=== PATIENT | male | born 1950 | race Caucasian/White ===

== ENCOUNTER 2022-09-06 18:06 | Inpatient (IN) | payer OTHER ==
[~2022-09-06] VITALS: Ht 182.9 cm; Wt 81.6 kg
[~2022-09-06 18:06] MED LIST: ALBU0.0939 IH; CARV25TA2 PO; CITA-70 PO; FURO-570 PO; GABA-560 PO; INSU100S45 SC; LANTUS SC; LISI10TA31 PO; OMEP20EC9 PO; TRAZ-471 PO; WARF2TAB PO; ZOLP-159 PO; [UNRECOGNIZED DRUG - CODE] PO; [UNRECOGNIZED DRUG - CODE] PO
--- NOTE | 2022-09-06 18:06 | NUR ---
RUPAL ALS TO ER BED 4
--- NOTE | 2022-09-06 18:08 | NUR ---
Patient being evaluated by physician at bedside.
[2022-09-06 18:12] VITALS: BP 148/72; PULSE 96; RESP 20; TEMP 98.9; O2SAT 98
--- NOTE | 2022-09-06 18:16 | NUR ---
72 Y/O MALE BIBA FROM HOME, C/O CHEST PAIN WITH REST, UNPROVOKED FOR 1 WEEK. PT STATES HE WAS SEEN AT [place] LAST WEEK FOR SAME PAIN AND RELEASED SAME DAY. PT STATES HE TOOK 3 TABS OF NITRO AT HOME BUT STATES THEY WERE . PT WAS GIVEN 1.2MG NITRO BY [facility] WITH 4MG OF ZOFRAN. PT STATES HE STILL HAS 6/10 PAIN RADIATING FROM CHEST TO LEFT ARM AND TINGLING IN HANDS AND FEET. A&OX4, DOES NOT AMBULATE AT THIS TIME DUE TO PAIN. HEART RATE SINUS, PACED 72. CALL LIGHT WITHIN REACH. PMH: PACEMAKER, CHF, COPD NKA
[2022-09-06] MEDS ORDERED: NITROGLYCERIN 2% 1 GM PKT TP ONE (18:20)
[2022-09-06] MEDS ORDERED: MORPHINE SULFATE 4 MG/ML SYR IVP ONE ×2 (18:20→22:20)
--- NOTE | 2022-09-06 18:20 | NUR ---
72 Y/O MALE BIBA FROM HOME, C/O CHEST PAIN WITH REST, UNPROVOKED FOR 1 WEEK. PT STATES HE WAS SEEN AT [place] LAST WEEK FOR SAME PAIN AND RELEASED SAME DAY. PT STATES HE TOOK 3 TABS OF NITRO AT HOME BUT STATES THEY WERE . PT WAS GIVEN 1.2MG NITRO BY [facility] WITH 4MG OF ZOFRAN. PT STATES HE STILL HAS 6/10 PAIN RADIATING FROM CHEST TO LEFT ARM AND TINGLING IN HANDS AND FEET. A&OX4, DOES NOT AMBULATE AT THIS TIME DUE TO PAIN. HEART RATE SINUS, PACED 72. CALL LIGHT WITHIN REACH. PMH: PACEMAKER, CHF, COPD NKA
[2022-09-06 18:25] VITALS: O2SAT 98
[2022-09-06 18:38] LABS: BASOPHILS # (AUTO) 0.1 K/uL (0.00-0.22); EOSINOPHILS # (AUTO) 0.2 K/uL (0-0.4); EOSINOPHILS % (AUTO) 3.1 % (0.0-4.0); LYMPHOCYTES # (AUTO) 1.7 K/uL (2.0-11.5); LYMPHOCYTES % (AUTO) 22.3 % (20.5-51.1); MEAN CORPUSCULAR HEMOGLOBIN 26 pg (27-31); MEAN CORPUSCULAR HGB CONC 33 g/dL (33-37); MEAN CORPUSCULAR VOLUME 80.2 fL (80-94); MONOCYTES # (AUTO) 0.9 K/uL (0.8-1.0); MONOCYTES % (AUTO) 11.8 % (1.7-9.3); NEUTROPHILS # (AUTO) 4.7 K/uL (1.8-7.7); NEUTROPHILS % (AUTO) 61.8 % (42.2-75.2); PLATELET COUNT (AUTO) 192 K/uL (140-450); RED BLOOD CELL COUNT(AUTO) 4.98 MIL/uL (4.20-6.10); RED CELL DISTRIBUTION WIDTH 16.8 % (11.6-13.7); WHITE BLOOD COUNT (AUTO) 7.7 K/uL (4.8-10.8)
--- NOTE | 2022-09-06 18:58 | NUR ---
PT HAS BEEN MEDICATED PER PROVIDERS ORDERS.
[2022-09-06 19:12] LABS: ALBUMIN 3.6 g/dL (3.4-5.0); ANION GAP 12.3 (8-16); ASPARTATE AMINOTRANSFERASE 21 U/L (15-37); CARBON DIOXIDE 27.5 mmol/L (21-32); CHLORIDE 102 mmol/L (98-107); CREATININE 1.4 mg/dL (0.6-1.3); GLUCOSE 149 mg/dL (74-106); POTASSIUM 4.8 mmol/L (3.5-5.1); SODIUM SERUM 137 mmol/L (136-145); TOTAL BILIRUBIN 0.4 mg/dL (0.0-1.0); UREA NITROGEN, BLOOD 22 mg/dL (7-18)
--- NOTE | 2022-09-06 19:30 | NUR ---
RELEASED CARE TO CHRISTY SHIN
--- NOTE | 2022-09-06 20:30 | NUR ---
at the bedside.
[2022-09-06] MEDS ORDERED: POTA10TA70 PO (21:41)
[2022-09-06] MEDS ORDERED: SACU1TAB PO (21:41)
[2022-09-06] MEDS ORDERED: CHOL1CRY3 MC (21:41)
[2022-09-06] MEDS ORDERED: VITB12 PO (21:41)
[2022-09-06] MEDS ORDERED: ASCO-5 PO (21:41)
[2022-09-06] MEDS ORDERED: CLOP75TA55 PO (21:41)
[2022-09-06] MEDS ORDERED: ALPOS OP (21:41)
[2022-09-06] MEDS ORDERED: NITROGLYCERIN 0.4 MG TAB SL PRN (21:50)
[2022-09-06] MEDS ORDERED: SPIMDI INH (22:25)
[2022-09-06] MEDS ORDERED: ISOS30TE68 PO (22:25)
[2022-09-06] MEDS ORDERED: PREG100C PO (22:25)
--- NOTE | 2022-09-06 22:34 | NUR ---
MED RECONCILE COMPLETED
[2022-09-06 23:40] VITALS: PULSE 66; RESP 22; O2SAT 92
--- NOTE | 2022-09-06 23:40 | NUR ---
RECEIVED PT FROM ER VIA [facility]. PT IS AAOX4 ON 2L NC SATING 92%. PT USES OXYGEN AT HOME ON 2L. PT CAME IN WITH COMPLAINS OF CHEST PAIN RADIATING TO LEFT SHOULDER AND LEGS. MORPHINE WAS GIVEN BEFORE TRANSFER TO [facility]. PT STATES MORPHINE HELPED A LITTLE. PT ABLE TO AMBULATE. PT STATES HE USES [employer] AT HOME AND HAS A WALKER. EDUCATED PT QUALITY ASSISTANT LIGHT SYSTEM. ROOM ENVIRONMENT. WILL CONTINUE TO MONITOR THE PT.
[2022-09-06 23:48] VITALS: BP 111/57; PULSE 66; PULSE 80; RESP 22; TEMP 97.2; O2SAT 92
[2022-09-07] VITALS (11 sets, daily range): BP systolic 119–157; BP diastolic 58–75; PULSE 60–66; RESP 18–24; TEMP 96.1–97.8; O2SAT 92–100
--- NOTE | 2022-09-07 00:51 | NUR ---
Patient will be admitted to care of [facility]. Admited to tele . Will go to room 107 B. Belongings list completed. Report to lars Galvan.
[2022-09-07] MEDS ORDERED: MORPHINE SULFATE ORAL SOLN 2 MG/ML UDC PO ONE (03:30)
--- NOTE | 2022-09-07 04:20 | NUR ---
PT COMPLAINING OF MOSTLY LEFT SHOULDER PAIN WHICH RADIATES TO CHEST AND LEFT ARM AND LEG. 9/10 PAIN ON CHEST BUT 10/10 PAIN ON LEFT SHOULDER/ARM/LEG. PT WANTED MORPHINE. MESSAGED [employer] JUSTICE DOCTOR MAURICIO THAT PT WANTED MORPHINE FOR PAIN IN THOSE AREAS. DOCTOR ORDERED MORPHINE 2M PO. MESSAGED DOCTOR IF IT WAS PO OR IVP. DOCTOR WANTS PO. MESSAGED DOCTOR THERE I SEE NO 2MG THEN HE WANTED 4 MG PO. ORDER FOR MORPHINE 4MG PO SOLN WAS PLACED. TALKED TO PHARMACY IF THEY HAVE THIS MEDICATION ON THE FLOOR. PHARMACY SAID NO IT ONLY ON THE MAIN PHARMACY AND THERE IS MORPHINE ER 15MG TAB MINIMUM. WENT AND TALKED TO PT IF HE WANTED SOME ALTERNATIVE MEDICATION LIKE NITRO THAT HE HAS ORDERED. PT SAID IT IS FINE. MEDICATION WAS GIVEN. AFTER SEVERAL MINUTES PT STATES HE FEELS A LITTLE BETTER AND WANTS TO TRY TO GET SOME REST.
--- NOTE | 2022-09-07 07:29 | NUR ---
ENDORSED PT TO DAY SHIFT RN FOR CONTINUITY OF CARE. PT IS STABLE.
--- NOTE | 2022-09-07 07:30 | NUR ---
RECIEVED BEDSIDE REPORT FROM PST MANAGER NURSE FOR CONTINUITY OF CARE. PT IS AWAKE, IN 2L NC. NO SIGN OF DISTRESS. CALL LIGHT WITHIN REACH.
[2022-09-07] MEDS ORDERED: MAG SULF 2000 MG/WATER PREMIX 50 ML IV PRN (08:00)
[2022-09-07] MEDS ORDERED: DEXTROSE 50% 50 ML SYR IVP PRN (08:30)
[2022-09-07] MEDS ORDERED: TIOTROPIUM BROMIDE INH SCH (09:00)
[2022-09-07] MEDS ORDERED: INSULIN ASPART U SCH (09:00)
[2022-09-07] MEDS ORDERED: CLOPIDOGREL 75 MG TAB PO SCH (09:00)
[2022-09-07] MEDS ORDERED: NON-FORMULARY ITEM (Omeprazole 20 MG) PO SCH (09:00)
[2022-09-07] MEDS ORDERED: HYDROCODONE PO SCH (09:00)
[2022-09-07] MEDS ORDERED: WARFARIN SODIUM 2 MG PO SCH (09:00)
[2022-09-07] MEDS ORDERED: GABAPENTIN 300 MG PO SCH (09:00)
[2022-09-07] MEDS ORDERED: [UNRECOGNIZED DRUG - OTHER] PO SCH (09:00)
[2022-09-07] MEDS ORDERED: ALBUTEROL 0.09 MG IH SCH (09:00)
[2022-09-07] MEDS ORDERED: CARVEDILOL 25 MG PO SCH (09:00)
[2022-09-07] MEDS ORDERED: ACETAMINOPHEN PO SCH (09:00)
--- NOTE | 2022-09-07 09:00 | NUR ---
PT VERBALIZED THAT HE HAS A BIPAP AT HOME FOR BED TIME AND NEBULIZER, INFORMED MD AND RT. HOME MEDS WERE RECONCILED PER MD ORDER. PT IS STABLE IN 2L NC. CALL LIGHT WITHIN REACH.
[2022-09-07] MEDS ORDERED: ALBUTEROL 0.083% 2.5 MG/3 ML NEBU INH PRN ×2 (09:45→10:00)
[2022-09-07] MEDS ORDERED: ZOLPIDEM 10 MG TAB PO PRN ×2 (09:45→20:30)
[2022-09-07] MEDS ORDERED: HYDROcodone/APAP 5/325 MG 1 TAB TAB PO PRN (09:45)
[2022-09-07] MEDS ORDERED: GABAPENTIN 300 MG CAP PO PRN (09:45)
[2022-09-07] MEDS ORDERED: IPRATROPIUM 0.02% 0.5 MG/2.5 ML NEBU INH PRN (09:50)
[2022-09-07 10:35] LABS: PROTHROMBIN TIME 19.1 secs (10.8-13.4)
[2022-09-07] MEDS: ASPIRIN 81 MG TAB.CHEW PO SCH (10:40)
[2022-09-07] MEDS: PREGABALIN 50 MG CAP PO SCH ×2 (10:41→21:10)
[2022-09-07] MEDS: ISOSORBIDE MONONITRATE 30 MG TABER PO SCH (10:42)
[2022-09-07] MEDS: ASCORBIC ACID 500 MG TAB PO SCH (10:43)
[2022-09-07] MEDS: CITALOPRAM 20 MG TAB PO SCH (10:45)
[2022-09-07] MEDS: FUROSEMIDE 40 MG TAB PO SCH ×2 (10:46→17:24)
[2022-09-07] MEDS: lisinopriL 10 MG TAB PO SCH (10:46)
[2022-09-07] MEDS: CLOPIDOGREL 75 MG TAB PO SCH (10:49)
[2022-09-07] MEDS: INSULIN LANTUS 100 UNITS/ML 10 ML VIAL SUBQ SCH (10:54)
[2022-09-07] MEDS: CYANOCOBALAMIN 100 MCG TAB PO SCH (11:03)
[2022-09-07] MEDS: BLOOD GLUCOSE MONITORING 1 DEV DEV FS SCH ×3 (12:05→21:16)
[2022-09-07] MEDS: INSULIN LISPRO SLIDING SCALE 100 UNITS/ML VIAL SUBQ PRN ×3 (12:10→21:17)
[2022-09-07] MEDS: WARFARIN 1 MG TAB PO SCH (17:23)
--- NOTE | 2022-09-07 19:35 | NUR ---
GAVE BEDSIDE REPORT FROM GRAIN SACKER NURSE FOR CONTINUITY OF CARE. PT IS AWAKE AND ALERT, NO SIGN OF DISTRESS. CALL LIGHT WITHIN REACH.
--- NOTE | 2022-09-07 19:36 | NUR ---
RECEIVED BEDSIDE REPORT FROM AM NURSE FOR CONTINUITY OF CARE. PATIENT IN BED AWAKE WELL RESTED IN NO ACUTE DISTRESS. ON O2 AT 2L NC SATING 97%. NO COMPLAINTS OF PAIN. BED WHEELS LOCKED IN LOW POSITION. CALL LIGHT WITHIN REACH.
[2022-09-07] MEDS ORDERED: POTASSIUM CHLORIDE 10 MEQ TABER PO PRN (20:30)
[2022-09-07] MEDS ORDERED: DOCUSATE SODIUM 100 MG GELCAP PO PRN (20:30)
[2022-09-07] MEDS ORDERED: MORPHINE SULFATE 2 MG/ML SYR IVP PRN (20:30)
[2022-09-07] MEDS ORDERED: LORazepam 2 MG/ML VIAL IVP PRN (20:30)
[2022-09-07] MEDS ORDERED: ACETAMINOPHEN 325 MG TAB PO PRN (20:30)
[2022-09-07] MEDS ORDERED: [UNRECOGNIZED DRUG - OTHER] PO SCH (21:00)
[2022-09-07] MEDS ORDERED: NON-FORMULARY ITEM (Trazodone HCl 50 MG) PO SCH (21:00)
[2022-09-07] MEDS ORDERED: traZODone 50 MG TAB PO SCH (21:00)
[2022-09-07] MEDS ORDERED: ZOLPIDEM TARTRATE 10 MG PO SCH (21:00)
[2022-09-07] MEDS ORDERED: PRAZOSIN 1 MG CAP PO SCH (21:00)
[2022-09-07] MEDS: carvediloL 12.5 MG TAB PO SCH (21:10)
--- NOTE | 2022-09-07 21:10 | NUR ---
ALL 2100 SCHEDULED MEDICATIONS GIVEN ORDERED. TOLERATED WELL.
--- NOTE | 2022-09-07 22:15 | NUR ---
PATIENT WAS PUT ON BIPAP, WELL TOLERATED.
[2022-09-08] VITALS (8 sets, daily range): BP systolic 98–119; BP diastolic 45–58; PULSE 60–79; RESP 17–18; TEMP 97.1–98; O2SAT 93–98
[2022-09-08 06:23] LABS: BASOPHILS % (AUTO) 0.6 % (0.0-2.0); EOSINOPHILS # (AUTO) 0.2 K/uL (0-0.4); EOSINOPHILS % (AUTO) 3.7 % (0.0-4.0); HEMATOCRIT 39.6 % (36-52); HEMOGLOBIN 12.8 g/dL (12.0-18.0); LYMPHOCYTES # (AUTO) 1.4 K/uL (2.0-11.5); LYMPHOCYTES % (AUTO) 26.3 % (20.5-51.1); MEAN CORPUSCULAR HEMOGLOBIN 26 pg (27-31); MEAN CORPUSCULAR HGB CONC 32 g/dL (33-37); MEAN CORPUSCULAR VOLUME 80.4 fL (80-94); MONOCYTES # (AUTO) 0.7 K/uL (0.8-1.0); MONOCYTES % (AUTO) 12.7 % (1.7-9.3); NEUTROPHILS % (AUTO) 56.7 % (42.2-75.2); PLATELET COUNT (AUTO) 148 K/uL (140-450); RED BLOOD CELL COUNT(AUTO) 4.93 MIL/uL (4.20-6.10); RED CELL DISTRIBUTION WIDTH 16.6 % (11.6-13.7); WHITE BLOOD COUNT (AUTO) 5.3 K/uL (4.8-10.8)
[2022-09-08] MEDS: BLOOD GLUCOSE MONITORING 1 DEV DEV FS SCH ×3 (06:31→16:30)
--- NOTE | 2022-09-08 06:31 | NUR ---
BLOOD SUGAR CHECKED WAS 94, NO INSULIN COVERAGE NEEDED.
[2022-09-08 06:40] LABS: PROTHROMBIN TIME 23.3 secs (10.8-13.4)
[2022-09-08 06:41] LABS: ANION GAP 7.6 (8-16); CARBON DIOXIDE 33.7 mmol/L (21-32); CHLORIDE 102 mmol/L (98-107); CREATININE 1.5 mg/dL (0.6-1.3); GLUCOSE 86 mg/dL (74-106); POTASSIUM 4.3 mmol/L (3.5-5.1); SODIUM SERUM 139 mmol/L (136-145); UREA NITROGEN, BLOOD 24 mg/dL (7-18)
--- NOTE | 2022-09-08 06:58 | NUR ---
RECEIVED PT ON 2L NASAL CANNULA. HOME CPAP REMOVED AND PT RESTING COMFORTABLY. CALL LIGHT WITHIN REACH OF PATIENT. WILL CONTINUE TO MONITOR.
--- NOTE | 2022-09-08 07:13 | NUR ---
GAVE BEDSIDE REPORT TO RC HARRISON FOR CONTINUITY OF CARE. PATIENT STABLE.
--- NOTE | 2022-09-08 07:14 | NUR ---
RECEIVED BEDSIDE REPORT FROM THERMAL CUTTING MACHINE OPERATOR NURSE FOR CONTINUITY OF CARE. PT WAS COMING OUT OF THE BATHROOM, STEADY GAIT AND NO SIGNS OF SOB. NO SIGN OF DISTRESS. CALL LIGHT WITHIN REACH.
[2022-09-08] MEDS: ASPIRIN 81 MG TAB.CHEW PO SCH (08:45)
[2022-09-08] MEDS: carvediloL 12.5 MG TAB PO SCH (08:47)
[2022-09-08] MEDS: CLOPIDOGREL 75 MG TAB PO SCH (08:48)
[2022-09-08] MEDS: PREGABALIN 50 MG CAP PO SCH (08:48)
[2022-09-08] MEDS: CITALOPRAM 20 MG TAB PO SCH (08:49)
[2022-09-08] MEDS: FUROSEMIDE 40 MG TAB PO SCH ×2 (08:50→17:46)
[2022-09-08] MEDS: ASCORBIC ACID 500 MG TAB PO SCH (08:51)
[2022-09-08] MEDS: ISOSORBIDE MONONITRATE 30 MG TABER PO SCH (08:51)
[2022-09-08] MEDS: lisinopriL 10 MG TAB PO SCH (08:51)
[2022-09-08] MEDS: CYANOCOBALAMIN 100 MCG TAB PO SCH (08:52)
[2022-09-08] MEDS: INSULIN LANTUS 100 UNITS/ML 10 ML VIAL SUBQ SCH (08:54)
[2022-09-08] MEDS ORDERED: BRIMONIDINE TARTRATE 0.2% OP 5 ML BTL OP SCH (09:00)
[2022-09-08] MEDS ORDERED: PANTOPRAZOLE 40 MG TABEC PO SCH (09:00)
--- NOTE | 2022-09-08 09:01 | NUR ---
PATIENT HAS BEEN SCREENED AND CATEGORIZED MODERATE NUTRITION RISK. PATIENT WILL BE SEEN WITHIN 3-5 DAYS OF ADMISSION. 09/06/22-09/11/[address]
[2022-09-08] MEDS: BRIMONIDINE TARTRATE 0.2% OP 5 ML BTL OP SCH ×3 (11:44→17:47)
[2022-09-08] MEDS: INSULIN LISPRO SLIDING SCALE 100 UNITS/ML VIAL SUBQ PRN (11:50)
--- NOTE | 2022-09-08 12:10 | NUR ---
DR MARTÍNEZ CAME TO THE PT'S ROOM, PT STATES THAT HE IS NO LONGER IN PAIN AND FEELING BETTER. MD SAID AWAITING CARDIAC CONSULT.
--- NOTE | 2022-09-08 15:21 | NUR ---
RD PROVIDED FOOD/DRUG INTERACTION EDUCATION ON WARFARIN AND LIMITING FOODS HIGH IN VITAMIN K WITH HANDOUT. PT VERBALIZED UNDERSTANDING AND HAD NO FURTHER QUESTIONS.
[2022-09-08] MEDS: WARFARIN 1 MG TAB PO SCH (17:44)
--- NOTE | 2022-09-08 19:05 | NUR ---
PREPARED DC PAPERS OF PT, AWAITING FOR TO PICK HIM UP. ID BAND AND IV REMOVED. PT IS STABLE,CALL LIGHT WITHIN REACH.
--- NOTE | 2022-09-08 19:29 | NUR ---
ENDORSED TO SUBSTATION TECHNICIAN NURSE HAS NOT ARRIVED. PT IS STABLE.
--- NOTE | 2022-09-08 20:16 | NUR ---
RECEIVED PATIENT SITTING ON THE BED WAITING FOR TO COME PICK HIM UP. NO DISTRESS NOTED ON 3L O2 VIA NC. CALL LIGHT WITHIN REACH.
--- NOTE | 2022-09-08 20:19 | NUR ---
PATIENT WAS DISCHARGED HOME IN STABLE CONDITION PHOTOGRAMMETRY AIRPLANE PILOT BY WITH PRIVATE VEHICLE.
== END 2022-09-08 20:08 | disposition home or self-care (01) | DRG 206 ==
LOC: MED 18:06 → MTU 21:51
PROVIDERS: ADMIT Family Medicine; ATTEND Family Medicine
DX: M94.0 Chondrocostal junction syndrome [Tietze] (principal); I24.9 Acute ischemic heart disease, unspecified; I13.0 Hypertensive heart and chronic kidney disease with heart failure and stage 1 through stage 4 chronic kidney disease, or unspecified chronic kidney disease; I42.9 Cardiomyopathy, unspecified; I50.22 Chronic systolic (congestive) heart failure; R65.10 Systemic inflammatory response syndrome (SIRS) of non-infectious origin without acute organ dysfunction; J44.9 Chronic obstructive pulmonary disease, unspecified; I25.10 Atherosclerotic heart disease of native coronary artery without angina pectoris; N18.9 Chronic kidney disease, unspecified; E11.22 Type 2 diabetes mellitus with diabetic chronic kidney disease; Z79.4 Long term (current) use of insulin; Z79.899 Other long term (current) drug therapy; Z79.1 Long term (current) use of non-steroidal anti-inflammatories (NSAID)
CPT/HCPCS: 36415; 71045; 80048; 80053; 82948; 83036; 83735; 83880; 84484; 85025; 85379; 85610; 87081; 93005; 94660; 96374; 96376; 99285; J1644; J1815; J2270

== ENCOUNTER 2023-08-22 23:28 | Emergency (ER) | payer OTHER ==
[~2023-08-22] VITALS: Ht 167.6 cm; Wt 72.6 kg
[~2023-08-22 23:28] MED LIST changes: +ALPOS OP; +ASCO-5 PO; +ATOR40TA PO; +CHOL1CRY3 MC; +CLOP75TA55 PO; +DICL100G32 TP; +DOCU250S85 PO; +DORZ10DR11 OP; +DULO60EC1 PO; +EMPA25TA PO; +FINA-54 PO; +FLUT1DSK4 IH; +FOLI2000 PO; +INSU100S22 SUBQ; +ISOS10TA9 PO; -LANTUS SC; +METH-1681 PO; +METO25TE2 PO; +NETA2.5D OP; +NITR0.4T2 SL; +PANT40EC PO; +POTA10TA70 PO; +PRED10TA5 PO; +PREG100C PO; +SACU1TAB PO; +SPIMDI INH; +TAMS0.4C97 PO; +VITB12 PO; +WARF-99 PO; -WARF2TAB PO; -[UNRECOGNIZED DRUG - CODE] PO
[2023-08-22 23:39] VITALS: BP 125/65; PULSE 84; RESP 16; TEMP 97.6; O2SAT 99
[2023-08-22 23:57] LABS: BASOPHILS # (AUTO) 0.1 K/uL (0.00-0.22); BASOPHILS % (AUTO) 1.1 % (0.0-2.0); EOSINOPHILS # (AUTO) 0.1 K/uL (0-0.4); EOSINOPHILS % (AUTO) 2.2 % (0.0-4.0); HEMATOCRIT 36.3 % (36-52); HEMOGLOBIN 11.9 g/dL (12.0-18.0); LYMPHOCYTES # (AUTO) 2.3 K/uL (2.0-11.5); LYMPHOCYTES % (AUTO) 33.6 % (20.5-51.1); MEAN CORPUSCULAR HEMOGLOBIN 25 pg (27-31); MEAN CORPUSCULAR HGB CONC 33 g/dL (33-37); MEAN CORPUSCULAR VOLUME 76.6 fL (80-94); MONOCYTES # (AUTO) 0.8 K/uL (0.8-1.0); MONOCYTES % (AUTO) 11.1 % (1.7-9.3); NEUTROPHILS # (AUTO) 3.6 K/uL (1.8-7.7); PLATELET COUNT (AUTO) 248 K/uL (140-450); RED BLOOD CELL COUNT(AUTO) 4.74 MIL/uL (4.20-6.10); RED CELL DISTRIBUTION WIDTH 17.2 % (11.6-13.7); WHITE BLOOD COUNT (AUTO) 6.8 K/uL (4.8-10.8)
[2023-08-23] MEDS: HYDROcodone/APAP 5/325 MG 1 TAB TAB PO ONE (00:10)
[2023-08-23 00:19] VITALS: BP 124/63; PULSE 80; RESP 19
[2023-08-23 00:39] LABS: ANION GAP 11.1 (8-16); CALCIUM 8.6 mg/dL (8.5-10.1); CARBON DIOXIDE 28.7 mmol/L (21-32); CHLORIDE 99 mmol/L (98-107); CREATININE 1.6 mg/dL (0.6-1.3); GLUCOSE 236 mg/dL (74-106); POTASSIUM 4.8 mmol/L (3.5-5.1); SODIUM SERUM 134 mmol/L (136-145); UREA NITROGEN, BLOOD 26 mg/dL (7-18)
[2023-08-23 00:42] VITALS: O2SAT 100
[2023-08-23 00:43] LABS: INR 1.84 (0.8-1.2); PROTHROMBIN TIME 18.8 secs (10.8-13.4)
[2023-08-23] MEDS: CYCLOBENZAPRINE 10 MG TAB PO ONE (01:55)
[2023-08-23] MEDS ORDERED: CYCL-711 PO (03:00)
[2023-08-23] MEDS ORDERED: DICL20GE TP (03:00)
== END 2023-08-23 03:09 | disposition home or self-care (01) ==
LOC: MED 23:28
DX: R07.89 Other chest pain (principal); R79.1 Abnormal coagulation profile; I13.0 Hypertensive heart and chronic kidney disease with heart failure and stage 1 through stage 4 chronic kidney disease, or unspecified chronic kidney disease; E11.22 Type 2 diabetes mellitus with diabetic chronic kidney disease; N18.9 Chronic kidney disease, unspecified; I50.9 Heart failure, unspecified; J44.9 Chronic obstructive pulmonary disease, unspecified; K21.9 Gastro-esophageal reflux disease without esophagitis; I25.10 Atherosclerotic heart disease of native coronary artery without angina pectoris; Z95.0 Presence of cardiac pacemaker; Z79.4 Long term (current) use of insulin; Z79.1 Long term (current) use of non-steroidal anti-inflammatories (NSAID); Z79.899 Other long term (current) drug therapy
CPT/HCPCS: 36415; 71045; 80048; 83880; 84484; 85025; 85610; 93005; 99285

== ENCOUNTER 2023-09-09 18:26 | Inpatient (IN) | payer OTHER ==
[~2023-09-09] VITALS: Ht 182.9 cm; Wt 88.5 kg
[~2023-09-09 18:26] MED LIST changes: +CYCL-711 PO; +DICL20GE TP
[2023-09-09 18:51] VITALS: BP 130/64; PULSE 75; RESP 19; TEMP 97.2; O2SAT 98
[2023-09-09] MEDS: MORPHINE SULFATE 4 MG/ML SYR IVP ONE (19:11)
[2023-09-09 19:19] LABS: BASOPHILS # (AUTO) 0.1 K/uL (0.00-0.22); BASOPHILS % (AUTO) 0.9 % (0.0-2.0); EOSINOPHILS # (AUTO) 0.2 K/uL (0-0.4); HEMATOCRIT 34.7 % (36-52); HEMOGLOBIN 11.1 g/dL (12.0-18.0); LYMPHOCYTES # (AUTO) 1.6 K/uL (2.0-11.5); LYMPHOCYTES % (AUTO) 24.2 % (20.5-51.1); MEAN CORPUSCULAR HEMOGLOBIN 25 pg (27-31); MEAN CORPUSCULAR HGB CONC 32 g/dL (33-37); MEAN CORPUSCULAR VOLUME 77.6 fL (80-94); MONOCYTES # (AUTO) 0.7 K/uL (0.8-1.0); MONOCYTES % (AUTO) 10.5 % (1.7-9.3); NEUTROPHILS # (AUTO) 4.1 K/uL (1.8-7.7); NEUTROPHILS % (AUTO) 61.4 % (42.2-75.2); PLATELET COUNT (AUTO) 170 K/uL (140-450); RED BLOOD CELL COUNT(AUTO) 4.47 MIL/uL (4.20-6.10); RED CELL DISTRIBUTION WIDTH 18.4 % (11.6-13.7); WHITE BLOOD COUNT (AUTO) 6.7 K/uL (4.8-10.8)
[2023-09-09 19:31] LABS: INR 3.14 (0.8-1.2); PROTHROMBIN TIME 31.2 secs (10.8-13.4)
[2023-09-09 19:33] LABS: PARTIAL THROMBOPLASTIN TIME 55.1 secs (22-35.6)
[2023-09-09 19:41] LABS: ANION GAP 12.4 (8-16); CALCIUM 8.8 mg/dL (8.5-10.1); CARBON DIOXIDE 27.1 mmol/L (21-32); CHLORIDE 103 mmol/L (98-107); CREATININE 1.1 mg/dL (0.6-1.3); GLUCOSE 173 mg/dL (74-106); POTASSIUM 4.5 mmol/L (3.5-5.1); SODIUM SERUM 138 mmol/L (136-145); UREA NITROGEN, BLOOD 20 mg/dL (7-18)
[2023-09-09 19:48] LABS: ALANINE AMINOTRANSFERASE 17 U/L (12-78); ALBUMIN 3.2 g/dL (3.4-5.0); ALKALINE PHOSPHATASE 89 U/L (50-136); ASPARTATE AMINOTRANSFERASE 19 U/L (15-37); BILIRUBIN,DIRECT 0.1 mg/dL (0.0-0.3); TOTAL BILIRUBIN 0.3 mg/dL (0.0-1.0); TOTAL PROTEIN, SERUM 6.1 g/dL (6.4-8.2)
[2023-09-09 20:19] VITALS: O2SAT 99
[2023-09-09] MEDS: ALBUTEROL SULFATE/IPRATROPIU 3 ML SOL IH ONE (21:19)
[2023-09-09 21:21] VITALS: PULSE 68; RESP 15; O2SAT 98
[2023-09-09] MEDS ORDERED: HYDROcodone/APAP 5/325 MG 1 TAB TAB PO PRN (21:45)
[2023-09-09] MEDS ORDERED: ACETAMINOPHEN 325 MG TAB PO PRN (21:45)
[2023-09-09] MEDS ORDERED: ONDANSETRON 4 MG/2 ML VIAL IVP PRN (21:45)
[2023-09-09] MEDS: methylPREDNISolone SS 125 MG/2 ML VIAL IVP ONE (21:49)
[2023-09-09] MEDS ORDERED: AZITHROMYCIN 500 MG INJ VIAL IV ONE (22:36)
[2023-09-09] MEDS ORDERED: cefTRIAXone 1,000 MG VIAL ONE (22:36)
[2023-09-09] MEDS: AZITHROMYCIN 500 MG in DEXTROSE 5% 250 ML IV SCH (22:49)
[2023-09-09] MEDS: NACL 0.9% 1,000 ML IV SCH (22:49)
[2023-09-09 23:14] VITALS: PULSE 73; RESP 20; O2SAT 95
[2023-09-10] VITALS (8 sets, daily range): BP systolic 106–135; BP diastolic 58–75; PULSE 61–85; RESP 16–19; TEMP 97.1–98.2; O2SAT 95–99
[2023-09-10] MEDS: methylPREDNISolone SS 40 MG/ML VIAL IVP SCH (04:20)
[2023-09-10 07:22] LABS: ANION GAP 15.8 (8-16); CALCIUM 8.8 mg/dL (8.5-10.1); CARBON DIOXIDE 23.7 mmol/L (21-32); CHLORIDE 104 mmol/L (98-107); GLUCOSE 196 mg/dL (74-106); POTASSIUM 4.5 mmol/L (3.5-5.1); SODIUM SERUM 139 mmol/L (136-145); UREA NITROGEN, BLOOD 24 mg/dL (7-18)
[2023-09-10 07:24] LABS: BASOPHILS % (AUTO) 0.1 % (0.0-2.0); EOSINOPHILS % (AUTO) 0.1 % (0.0-4.0); HEMATOCRIT 36.3 % (36-52); HEMOGLOBIN 11.8 g/dL (12.0-18.0); LYMPHOCYTES # (AUTO) 0.6 K/uL (2.0-11.5); LYMPHOCYTES % (AUTO) 11.5 % (20.5-51.1); MEAN CORPUSCULAR HEMOGLOBIN 25 pg (27-31); MEAN CORPUSCULAR HGB CONC 32 g/dL (33-37); MEAN CORPUSCULAR VOLUME 77.3 fL (80-94); MONOCYTES # (AUTO) 0.1 K/uL (0.8-1.0); MONOCYTES % (AUTO) 1.3 % (1.7-9.3); NEUTROPHILS # (AUTO) 4.8 K/uL (1.8-7.7); PLATELET COUNT (AUTO) 159 K/uL (140-450); RED BLOOD CELL COUNT(AUTO) 4.69 MIL/uL (4.20-6.10); RED CELL DISTRIBUTION WIDTH 18.5 % (11.6-13.7); WHITE BLOOD COUNT (AUTO) 5.5 K/uL (4.8-10.8)
[2023-09-10] MEDS: ALBUTEROL SULFATE/IPRATROPIU 3 ML SOL IH SCH (08:11)
[2023-09-10] MEDS: ENOXAPARIN 40 MG/0.4 ML SYR SUBQ SCH (09:00)
[2023-09-10] MEDS ORDERED: DEXTROSE 50% 50 ML SYR IVP PRN (09:35)
[2023-09-10] MEDS: INSULIN LISPRO SLIDING SCALE 100 UNITS/ML VIAL SUBQ PRN (11:38)
[2023-09-10] MEDS: BLOOD GLUCOSE MONITORING 1 DEV DEV FS SCH (11:38)
[2023-09-11 04:00] VITALS: BP 97/58; PULSE 60; RESP 16; TEMP 97.9; O2SAT 97
[2023-09-11 05:38] LABS: BASOPHILS % (AUTO) 0.2 % (0.0-2.0); HEMATOCRIT 35.9 % (36-52); HEMOGLOBIN 11.7 g/dL (12.0-18.0); LYMPHOCYTES # (AUTO) 0.7 K/uL (2.0-11.5); LYMPHOCYTES % (AUTO) 7.4 % (20.5-51.1); MEAN CORPUSCULAR HEMOGLOBIN 25 pg (27-31); MEAN CORPUSCULAR HGB CONC 33 g/dL (33-37); MONOCYTES # (AUTO) 0.6 K/uL (0.8-1.0); MONOCYTES % (AUTO) 6.4 % (1.7-9.3); NEUTROPHILS # (AUTO) 7.8 K/uL (1.8-7.7); PLATELET COUNT (AUTO) 181 K/uL (140-450); RED BLOOD CELL COUNT(AUTO) 4.67 MIL/uL (4.20-6.10); RED CELL DISTRIBUTION WIDTH 18.4 % (11.6-13.7); WHITE BLOOD COUNT (AUTO) 9.1 K/uL (4.8-10.8)
[2023-09-11 06:25] LABS: ANION GAP 12.2 (8-16); CALCIUM 9.3 mg/dL (8.5-10.1); CARBON DIOXIDE 28.4 mmol/L (21-32); CHLORIDE 104 mmol/L (98-107); GLUCOSE 213 mg/dL (74-106); POTASSIUM 4.6 mmol/L (3.5-5.1); SODIUM SERUM 140 mmol/L (136-145); UREA NITROGEN, BLOOD 30 mg/dL (7-18)
[2023-09-11 07:35] VITALS: PULSE 60; RESP 16; O2SAT 95
[2023-09-11 08:00] VITALS: BP 122/63; PULSE 62; PULSE 72; RESP 17; RESP 18; TEMP 98; O2SAT 95
[2023-09-11] MEDS ORDERED: AZIT250T4 PO (11:52)
[2023-09-11] MEDS ORDERED: PRED20TA5 PO (11:52)
[2023-09-11 12:00] VITALS: BP 119/82; PULSE 79; RESP 20; TEMP 98.1; O2SAT 95
[2023-09-11 12:54] VITALS: BP 114/62; PULSE 70; RESP 17; TEMP 98.2
== END 2023-09-11 13:30 | disposition home or self-care (01) | DRG 189 ==
LOC: MED 18:26 → MMU 21:50 → MTU 22:47
PROVIDERS: ADMIT Student in an Organized Health Care Education/Training Program; ATTEND Student in an Organized Health Care Education/Training Program
DX: J96.21 Acute and chronic respiratory failure with hypoxia (principal); J44.1 Chronic obstructive pulmonary disease with (acute) exacerbation; Z79.899 Other long term (current) drug therapy
CPT/HCPCS: 36415; 71045; 80048; 80076; 82948; 83880; 84484; 85025; 85610; 85730; 87081; 93005; 94640; 96374; 96375; 99291; J0456; J0696; J1815; J2270; J2919; J2920; J7060

== ENCOUNTER 2023-10-27 17:24 | Emergency (ER) | payer OTHER ==
[~2023-10-27] VITALS: Ht 182.9 cm; Wt 81.6 kg
[~2023-10-27 17:24] MED LIST changes: +AZIT250T4 PO; -DICL20GE TP; -PRED10TA5 PO; +PRED20TA5 PO
[2023-10-27 17:32] VITALS: BP 133/61; PULSE 78; RESP 30; TEMP 98.1; O2SAT 98
[2023-10-27 18:16] LABS: BASOPHILS % (AUTO) 0.6 % (0.0-2.0); EOSINOPHILS # (AUTO) 0.1 K/uL (0-0.4); EOSINOPHILS % (AUTO) 2.1 % (0.0-4.0); HEMATOCRIT 38.3 % (36-52); HEMOGLOBIN 12.2 g/dL (12.0-18.0); LYMPHOCYTES # (AUTO) 1.4 K/uL (2.0-11.5); LYMPHOCYTES % (AUTO) 24.5 % (20.5-51.1); MEAN CORPUSCULAR HEMOGLOBIN 25 pg (27-31); MEAN CORPUSCULAR HGB CONC 32 g/dL (33-37); MEAN CORPUSCULAR VOLUME 78.8 fL (80-94); MONOCYTES # (AUTO) 0.7 K/uL (0.8-1.0); MONOCYTES % (AUTO) 11.5 % (1.7-9.3); NEUTROPHILS # (AUTO) 3.6 K/uL (1.8-7.7); NEUTROPHILS % (AUTO) 61.3 % (42.2-75.2); PLATELET COUNT (AUTO) 177 K/uL (140-450); RED BLOOD CELL COUNT(AUTO) 4.86 MIL/uL (4.20-6.10); RED CELL DISTRIBUTION WIDTH 17.8 % (11.6-13.7); WHITE BLOOD COUNT (AUTO) 5.9 K/uL (4.8-10.8)
[2023-10-27 18:23] LABS: ANION GAP 12.2 (8-16); CALCIUM 8.9 mg/dL (8.5-10.1); CARBON DIOXIDE 29.3 mmol/L (21-32); CHLORIDE 102 mmol/L (98-107); CREATININE 1.2 mg/dL (0.6-1.3); GLUCOSE 191 mg/dL (74-106); POTASSIUM 4.5 mmol/L (3.5-5.1); SODIUM SERUM 139 mmol/L (136-145); UREA NITROGEN, BLOOD 26 mg/dL (7-18)
[2023-10-27 20:27] LABS: INR 2.88 (0.8-1.2); PROTHROMBIN TIME 28.5 secs (10.8-13.4)
[2023-10-27 23:40] VITALS: BP 153/71; PULSE 70; RESP 16; TEMP 98.1; O2SAT 100
[2023-10-27] MEDS: FUROSEMIDE 20 MG/2 ML VIAL IVP ONE (23:53)
== END 2023-10-27 23:40 | disposition left against medical advice (07) ==
LOC: MED 17:24
DX: S20.219A Contusion of unspecified front wall of thorax, initial encounter (principal); E11.22 Type 2 diabetes mellitus with diabetic chronic kidney disease; I13.0 Hypertensive heart and chronic kidney disease with heart failure and stage 1 through stage 4 chronic kidney disease, or unspecified chronic kidney disease; N18.9 Chronic kidney disease, unspecified; I50.9 Heart failure, unspecified; J44.9 Chronic obstructive pulmonary disease, unspecified; Z95.0 Presence of cardiac pacemaker; Z79.899 Other long term (current) drug therapy; Z79.4 Long term (current) use of insulin; Z79.01 Long term (current) use of anticoagulants; X58.XXXA Exposure to other specified factors, initial encounter; Y92.89 Other specified places as the place of occurrence of the external cause; Y93.89 Activity, other specified; Y99.8 Other external cause status
CPT/HCPCS: 36415; 71045; 76604; 80048; 83880; 84484; 85025; 85610; 93005; 99285; Q0092

== ENCOUNTER 2023-12-26 19:33 | Inpatient (IN) | payer OTHER ==
[~2023-12-26] VITALS: Ht 182.9 cm; Wt 84.8 kg
[2023-12-26 19:46] VITALS: BP 117/38; PULSE 77; RESP 18; TEMP 97.4; O2SAT 97
[2023-12-26 20:18] LABS: BASOPHILS # (AUTO) 0.1 K/uL (0.00-0.22); BASOPHILS % (AUTO) 1.2 % (0.0-2.0); EOSINOPHILS # (AUTO) 0.3 K/uL (0-0.4); EOSINOPHILS % (AUTO) 3.9 % (0.0-4.0); HEMATOCRIT 34.6 % (36-52); LYMPHOCYTES # (AUTO) 1.7 K/uL (2.0-11.5); LYMPHOCYTES % (AUTO) 26.1 % (20.5-51.1); MEAN CORPUSCULAR HEMOGLOBIN 24 pg (27-31); MEAN CORPUSCULAR HGB CONC 32 g/dL (33-37); MEAN CORPUSCULAR VOLUME 76.4 fL (80-94); MONOCYTES # (AUTO) 0.8 K/uL (0.8-1.0); MONOCYTES % (AUTO) 11.9 % (1.7-9.3); NEUTROPHILS # (AUTO) 3.7 K/uL (1.8-7.7); NEUTROPHILS % (AUTO) 56.9 % (42.2-75.2); PLATELET COUNT (AUTO) 204 K/uL (140-450); RED BLOOD CELL COUNT(AUTO) 4.53 MIL/uL (4.20-6.10); RED CELL DISTRIBUTION WIDTH 16.4 % (11.6-13.7); WHITE BLOOD COUNT (AUTO) 6.4 K/uL (4.8-10.8)
[2023-12-26] MEDS: MORPHINE SULFATE 4 MG/ML SYR IVP ONE (20:18)
[2023-12-26] MEDS: NITROGLYCERIN 2% 1 GM PKT TP ONE (20:21)
[2023-12-26 20:36] LABS: ALANINE AMINOTRANSFERASE 15 U/L (12-78); ALBUMIN 3.1 g/dL (3.4-5.0); ALKALINE PHOSPHATASE 104 U/L (50-136); ASPARTATE AMINOTRANSFERASE 32 U/L (15-37); BILIRUBIN,DIRECT 0.1 mg/dL (0.0-0.3); TOTAL BILIRUBIN 0.4 mg/dL (0.0-1.0); TOTAL PROTEIN, SERUM 6.3 g/dL (6.4-8.2)
[2023-12-26 20:43] LABS: ANION GAP 11.1 (8-16); CALCIUM 8.4 mg/dL (8.5-10.1); CARBON DIOXIDE 29.2 mmol/L (21-32); CHLORIDE 103 mmol/L (98-107); CREATININE 1.2 mg/dL (0.6-1.3); GLUCOSE 162 mg/dL (74-106); POTASSIUM 4.3 mmol/L (3.5-5.1); SODIUM SERUM 139 mmol/L (136-145); UREA NITROGEN, BLOOD 26 mg/dL (7-18)
[2023-12-26] MEDS ORDERED: ACETAMINOPHEN 325 MG TAB PO PRN (23:35)
[2023-12-26] MEDS ORDERED: MORPHINE SULFATE 2 MG/ML SYR IVP PRN (23:35)
[2023-12-26] MEDS ORDERED: HYDROcodone/APAP 5/325 MG 1 TAB TAB PO PRN (23:35)
[2023-12-27] VITALS (11 sets, daily range): BP systolic 127–158; BP diastolic 53–71; PULSE 66–78; RESP 18–20; TEMP 96.7–98.2; O2SAT 92–99
[2023-12-27] MEDS: ENOXAPARIN 40 MG/0.4 ML SYR SUBQ SCH (01:24)
[2023-12-27] MEDS ORDERED: ASPIRIN 81 MG TAB.CHEW ONE (01:36)
[2023-12-27] MEDS: ASPIRIN 81 MG TAB.CHEW PO ONE (01:37)
[2023-12-27 06:07] LABS: BASOPHILS # (AUTO) 0.1 K/uL (0.00-0.22); BASOPHILS % (AUTO) 1.1 % (0.0-2.0); EOSINOPHILS # (AUTO) 0.3 K/uL (0-0.4); EOSINOPHILS % (AUTO) 4.8 % (0.0-4.0); HEMOGLOBIN 11.5 g/dL (12.0-18.0); LYMPHOCYTES # (AUTO) 1.9 K/uL (2.0-11.5); LYMPHOCYTES % (AUTO) 33.9 % (20.5-51.1); MEAN CORPUSCULAR HEMOGLOBIN 24 pg (27-31); MEAN CORPUSCULAR HGB CONC 32 g/dL (33-37); MEAN CORPUSCULAR VOLUME 75.6 fL (80-94); MONOCYTES # (AUTO) 0.7 K/uL (0.8-1.0); MONOCYTES % (AUTO) 12.3 % (1.7-9.3); NEUTROPHILS # (AUTO) 2.7 K/uL (1.8-7.7); NEUTROPHILS % (AUTO) 47.9 % (42.2-75.2); PLATELET COUNT (AUTO) 184 K/uL (140-450); RED BLOOD CELL COUNT(AUTO) 4.76 MIL/uL (4.20-6.10); RED CELL DISTRIBUTION WIDTH 15.9 % (11.6-13.7); WHITE BLOOD COUNT (AUTO) 5.7 K/uL (4.8-10.8)
[2023-12-27] MEDS: BLOOD GLUCOSE MONITORING 1 DEV DEV FS SCH (06:40)
[2023-12-27 06:58] LABS: ALANINE AMINOTRANSFERASE 19 U/L (12-78); ALKALINE PHOSPHATASE 100 U/L (50-136); ANION GAP 9.4 (8-16); ASPARTATE AMINOTRANSFERASE 13 U/L (15-37); CALCIUM 8.6 mg/dL (8.5-10.1); CARBON DIOXIDE 30.9 mmol/L (21-32); CHLORIDE 106 mmol/L (98-107); CREATININE 1.1 mg/dL (0.6-1.3); GLUCOSE 81 mg/dL (74-106); MAGNESIUM 1.9 mg/dL (1.8-2.4); PHOSPHORUS 3.4 mg/dL (2.5-4.9); POTASSIUM 3.3 mmol/L (3.5-5.1); SODIUM SERUM 143 mmol/L (136-145); TOTAL BILIRUBIN 0.3 mg/dL (0.0-1.0); UREA NITROGEN, BLOOD 23 mg/dL (7-18)
[2023-12-27] MEDS: ASPIRIN 81 MG TAB.CHEW PO SCH (08:40)
[2023-12-27] MEDS: ATORVASTATIN 20 MG TAB PO SCH (08:40)
[2023-12-27] MEDS ORDERED: CYCLOBENZAPRINE 10 MG TAB PO PRN (12:05)
[2023-12-27] MEDS ORDERED: methocarbamoL 500 MG TAB PO PRN (12:05)
[2023-12-27] MEDS ORDERED: ALBUTEROL 0.09 MG IH SCH (12:05)
[2023-12-27] MEDS ORDERED: NITROGLYCERIN 0.4 MG TAB SL PRN (12:05)
[2023-12-27] MEDS ORDERED: ALBUTEROL 0.083% 2.5 MG/3 ML NEBU INH PRN (13:25)
[2023-12-27 15:25] LABS: INR 1.21 (0.8-1.2); PROTHROMBIN TIME 12.6 secs (10.8-13.4)
[2023-12-27] MEDS: INSULIN LISPRO SLIDING SCALE 100 UNITS/ML VIAL SUBQ PRN (17:06)
[2023-12-27] MEDS: TAMSULOSIN 0.4 MG CAP PO SCH (17:15)
[2023-12-27] MEDS: WARFARIN 1 MG TAB PO SCH (17:17)
[2023-12-27] MEDS: POTASSIUM CHLORIDE 10 MEQ TABER PO PRN (17:18)
[2023-12-27] MEDS: FUROSEMIDE 40 MG TAB PO SCH (20:23)
[2023-12-27] MEDS: carvediloL 12.5 MG TAB PO SCH (20:24)
[2023-12-27] MEDS ORDERED: ENOXAPARIN 40 MG/0.4 ML SYR SUBQ SCH (21:00)
[2023-12-27] MEDS ORDERED: ISOSORBIDE DINITRATE 10 MG TAB PO SCH (21:00)
[2023-12-27] MEDS ORDERED: CARVEDILOL 25 MG PO SCH (21:00)
[2023-12-28 01:29] VITALS: O2SAT 98
[2023-12-28 04:00] VITALS: BP 139/57; PULSE 66; RESP 18; TEMP 97.3; O2SAT 95
[2023-12-28 04:37] VITALS: O2SAT 98
[2023-12-28 06:55] LABS: INR 1.4 (0.8-1.2); PROTHROMBIN TIME 14.4 secs (10.8-13.4)
[2023-12-28 07:05] LABS: ANION GAP 13.2 (8-16); CALCIUM 9.3 mg/dL (8.5-10.1); CARBON DIOXIDE 30.8 mmol/L (21-32); CHLORIDE 103 mmol/L (98-107); CREATININE 1.2 mg/dL (0.6-1.3); GLUCOSE 162 mg/dL (74-106); SODIUM SERUM 142 mmol/L (136-145); UREA NITROGEN, BLOOD 18 mg/dL (7-18)
[2023-12-28 08:00] VITALS: BP 147/87; PULSE 70; RESP 20; TEMP 98.4; O2SAT 98
[2023-12-28] MEDS: FINASTERIDE 5 MG TAB PO SCH (08:59)
[2023-12-28] MEDS: PANTOPRAZOLE 40 MG TABEC PO SCH (08:59)
[2023-12-28] MEDS: CLOPIDOGREL 75 MG TAB PO SCH (08:59)
[2023-12-28] MEDS: DULoxetine 30 MG CAPDR PO SCH (08:59)
[2023-12-28] MEDS ORDERED: CITALOPRAM 20 MG TAB PO SCH (09:00)
[2023-12-28] MEDS ORDERED: METOPROLOL SUCCINATE 50 MG TABER PO SCH (09:00)
[2023-12-28] MEDS ORDERED: lisinopriL 10 MG TAB PO SCH (09:00)
[2023-12-28 10:24] VITALS: PULSE 70; RESP 18; O2SAT 85; O2SAT 95
[2023-12-28] MEDS ORDERED: WARFARIN 5 MG TAB PO SCH (17:00)
== END 2023-12-28 15:16 | disposition home or self-care (01) | DRG 206 ==
LOC: MED 19:33 → MTU 23:37
PROVIDERS: ADMIT Student in an Organized Health Care Education/Training Program; ATTEND Student in an Organized Health Care Education/Training Program
DX: M94.0 Chondrocostal junction syndrome [Tietze] (principal); I13.0 Hypertensive heart and chronic kidney disease with heart failure and stage 1 through stage 4 chronic kidney disease, or unspecified chronic kidney disease; I50.22 Chronic systolic (congestive) heart failure; E11.22 Type 2 diabetes mellitus with diabetic chronic kidney disease; N18.9 Chronic kidney disease, unspecified; I25.10 Atherosclerotic heart disease of native coronary artery without angina pectoris; J44.9 Chronic obstructive pulmonary disease, unspecified; N40.0 Benign prostatic hyperplasia without lower urinary tract symptoms; E78.5 Hyperlipidemia, unspecified; Z95.5 Presence of coronary angioplasty implant and graft; Z95.810 Presence of automatic (implantable) cardiac defibrillator
CPT/HCPCS: 36415; 71045; 80048; 80053; 80076; 82948; 83735; 83880; 84100; 84484; 85025; 85379; 85610; 87081; 93005; 96372; 96374; 99285; J1650; J1815; J2270; Q0092